=== PATIENT | male | born 1955 | race Caucasian/White ===

== ENCOUNTER → 2017-01-02 | Outpatient (CLI) | payer OTHER ==
[~2017-01-02] VITALS: Ht 180.3 cm; Wt 97.6 kg
[~2017-01-02] MED LIST: AMLO10TA2 PO; ATEN25TA PO; CHLORHEXIDINE GLUCONATE 2 % 1 PACK (2 CLOTHS) TOPICAL PRN; INSULIN HUMAN REGULAR 1,000 UNITS/10 ML VIAL SQ PRN; LACTATED RINGER'S 1000 ML IV PRN; METOPROLOL TARTRATE 25 MG TAB PO PRN; POVIDONE IODINE 5% (ANTISEPSIS KIT) 4 APPLICATIONS EACH NARE PRN; PROPOFOL 200 MG/20 ML AMP IV ONE; SODIUM CHLORID 0.9% 500 ML IV PRN
[2017-01-02 09:24] VITALS: BP 149/90; PULSE 74; RESP 18; TEMP 98.3; O2SAT 96
[2017-01-02 11:55] VITALS: TEMP 98.7
[2017-01-02 12:15] VITALS: BP 140/88; PULSE 62; RESP 18; O2SAT 93
--- NOTE | 2017-01-02 13:28 | MR ---
cc: MISA HINKLE M.D. DATE: 01/02/2017 DATE OF : 1955 PROCEDURE Colonoscopy to the terminal ileum. INDICATION FOR PROCEDURE Average risk colorectal cancer screening. PHOTOGRAPHS AND BIOPSIES Photographs were taken. No biopsies. PREMEDICATION Administered by anesthesiology. MONITORING Monitoring was accomplished with pulse oximeter, EKG and blood pressure monitor. PROCEDURE NOTE After informed consent was obtained and the procedure, risks and benefits were explained including risks of bleeding, sepsis, perforation, risks of anesthesia, the patient was placed in the left lateral position. The video colonoscope was inserted in the rectum. The scope was passed easily to the cecum and terminal ileum. Preparation was very good. The colonic mucosa appeared to be grossly normal throughout. The scope was gradually withdrawn. Scope extraction time was greater than six minutes. No space-occupying lesions were seen. In the rectum the scope was retroflexed and the area appeared to be unremarkable as well. The scope was removed. The patient tolerated the procedure well. No immediate complications were noted. IMPRESSION Unremarkable colonoscopy to the cecum and terminal ileum. PLAN 1. Recommend repeat colonoscopy in 10 years. 2. Follow-up with primary care physician. MD JULIA Bone/MARYANNE /12:05 PM /1:23 PM
--- NOTE | 2017-01-02 15:33 | EKG ---
Date Performed: 01/02/2017 Time Performed: 09:50:44 PTAGE: 61 years EKG: Sinus rhythm WITH FIRST DEGREE AV BLOCK BORDERLINE LEFT AXIS DEVIATION NONSPECIFIC ST & T-WAVE ABNORMALITY ABNORM AL ECG Compared to prior tracing no significant change PREVIOUS TRACING : 12/15/2014 02.13 DOCTOR: Conrad Perez Interpretating Date/Time 01/02/2017 15:33:09
== END ==
LOC: HEND 08:45
PROVIDERS: ATTEND Internal Medicine Gastroenterology
DX: Z12.11 Encounter for screening for malignant neoplasm of colon (principal); Z01.810 Encounter for preprocedural cardiovascular examination
CPT/HCPCS: 45378; 93005; J7120